=== PATIENT | female | born 1995 | race Caucasian/White ===

== ENCOUNTER 2016-12-04 11:20 | Outpatient (CLI) | payer OTHER, BC ==
[2016-12-04 12:08] LABS: APPEARANCE,URINE SLIGHTLY-CLOUDY; BILIRUBIN,URINE NEGATIVE (NEGATIVE); GLUCOSE, URINE NEGATIVE (NEGATIVE); KETONES,URINE NEGATIVE (NEGATIVE); LEUKOCYTE ESTERASE,URINE MODERATE (NEGATIVE); NITRITE,URINE NEGATIVE (NEGATIVE); PROTEIN,URINE NEGATIVE (NEGATIVE); URINE SPECIFIC GRAVITY 1.014; UROBILINOGEN,URINE NEGATIVE mg/dL (<2.0)
[2016-12-04 12:22] LABS: URINE BARBITURATES SCREEN NEGATIVE; URINE METHADONE SCREEN NEGATIVE; URINE OPIATES LOW NEGATIVE; URINE PHENCYCLIDINE SCREEN NEGATIVE
[2016-12-04 12:40] LABS: AMNISURE (ROM) NEGATIVE (NEGATIVE)
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
== END 2016-12-04 13:50 | disposition home or self-care (01) ==
LOC: LC 11:20
PROVIDERS: ATTEND Obstetrics & Gynecology
PROC: 4A1HXCZ Monitoring of Products of Conception, Cardiac Rate, External Approach (ICD-10-PCS; principal; 2016-12-04)
DX: Z36.89 Encounter for other specified antenatal screening (principal); Z3A.24 24 weeks gestation of pregnancy
CPT/HCPCS: 76815; 80307; 81001; 84112

== ENCOUNTER 2017-02-26 18:12 | Outpatient (CLI) | payer BC, OTHER ==
[2017-02-26 18:59] LABS: AMNISURE (ROM) NEGATIVE (NEGATIVE)
[2017-02-26 19:00] LABS: APPEARANCE,URINE CLOUDY; BILIRUBIN,URINE NEGATIVE (NEGATIVE); COLOR,URINE YELLOW; GLUCOSE, URINE NEGATIVE (NEGATIVE); KETONES,URINE NEGATIVE (NEGATIVE); LEUKOCYTE ESTERASE,URINE LARGE (NEGATIVE); NITRITE,URINE NEGATIVE (NEGATIVE); PROTEIN,URINE 30 mg/dL (NEGATIVE); URINE SPECIFIC GRAVITY 1.025; UROBILINOGEN,URINE NEGATIVE mg/dL (<2.0)
[2017-02-26 19:13] LABS: URINE AMPHETAMINES SCREEN NEGATIVE; URINE BARBITURATES SCREEN NEGATIVE; URINE BENZODIAZEPINES SCREEN NEGATIVE; URINE COCAINE SCREEN NEGATIVE; URINE MARIJUANA (THC) SCREEN NEGATIVE; URINE METHADONE SCREEN NEGATIVE; URINE PHENCYCLIDINE SCREEN NEGATIVE
== END 2017-02-26 19:35 | disposition home or self-care (01) ==
LOC: LC 18:12
PROVIDERS: ATTEND Obstetrics & Gynecology Gynecology
PROC: 4A1HXCZ Monitoring of Products of Conception, Cardiac Rate, External Approach (ICD-10-PCS; principal; 2017-02-26)
DX: O47.03 False labor before 37 completed weeks of gestation, third trimester (principal); Z3A.36 36 weeks gestation of pregnancy
CPT/HCPCS: 59025; 80307; 81001; 84112

== ENCOUNTER 2017-03-14 14:44 | Outpatient (CLI) | payer OTHER ==
[2017-03-14 15:43] LABS: ABSOLUTE EOSINOPHILS # (AUTO) 0.1 10^3/uL (0.0-0.6); ABSOLUTE LYMPHOCYTES (AUTO) 1.8 10^3/uL (0.5-4.7); ABSOLUTE MONOCYTES (AUTO) 0.9 10^3/uL (0.1-1.4); ABSOLUTE NEUT (AUTO) 6.4 10^3/uL (1.7-8.2); BASOPHILS % (AUTO) 0.4 % (0-2); EOSINOPHILS % (AUTO) 1.2 % (0-6); HEMATOCRIT 36.4 % (36.0-47.0); HEMOGLOBIN 12.5 g/dL (12.0-15.5); LYMPHOCYTES % (AUTO) 19.5 % (13-45); MEAN CORPUSCULAR HEMOGLOBIN 29.9 pg (27.0-33.4); MEAN CORPUSCULAR HGB CONC 34.3 g/dL (32.0-36.0); MEAN CORPUSCULAR VOLUME 87 fl (80-97); MONOCYTES % (AUTO) 10.2 % (3-13); PLATELET COUNT 205 10^3/uL (150-450); RED BLOOD COUNT 4.19 10^6/uL (3.72-5.28); RED CELL DISTRIBUTION WIDTH 14.2 % (11.5-14.0); SEGMENTED NEUTROPHILS % (AUTO) 68.7 % (42-78); TOTAL CELLS COUNTED % (AUTO) 100 %; WHITE BLOOD COUNT 9.3 10^3/uL (4.0-10.5)
[2017-03-14 16:02] LABS: ALANINE AMINOTRANSFERASE 24 U/L (9-52); ALBUMIN 3.6 g/dL (3.5-5.0); ALKALINE PHOSPHATASE 116 U/L (38-126); ANION GAP 11 (5-19); ASPARTATE AMINO TRANSFERASE 16 U/L (14-36); BLOOD UREA NITROGEN 9 mg/dL (7-20); CALCIUM 9.8 mg/dL (8.4-10.2); CARBON DIOXIDE 22 mmol/L (22-30); CHLORIDE 104 mmol/L (98-107); GLUCOSE 83 mg/dL (75-110); LDH 378 U/L (313-618); POTASSIUM 4.4 mmol/L (3.6-5.0); TOTAL PROTEIN 6.3 g/dL (6.3-8.2); URIC ACID 4.9 mg/dL (2.5-6.2)
[2017-03-14 16:05] LABS: BILIRUBIN,TOTAL < 0.1 mg/dL (0.2-1.3)
[2017-03-14 16:19] LABS: APPEARANCE,URINE CLOUDY; BILIRUBIN,URINE NEGATIVE (NEGATIVE); CALCIUM OXALATE CRYSTALS,URINE MODERATE /HPF; COLOR,URINE YELLOW; GLUCOSE, URINE NEGATIVE (NEGATIVE); KETONES,URINE NEGATIVE (NEGATIVE); LEUKOCYTE ESTERASE,URINE LARGE (NEGATIVE); NITRITE,URINE NEGATIVE (NEGATIVE); PROTEIN,URINE 30 mg/dL (NEGATIVE); URINE SPECIFIC GRAVITY 1.026; UROBILINOGEN,URINE NEGATIVE mg/dL (<2.0)
[2017-03-14 16:41] LABS: URINE AMPHETAMINES SCREEN NEGATIVE; URINE BARBITURATES SCREEN NEGATIVE; URINE BENZODIAZEPINES SCREEN NEGATIVE; URINE COCAINE SCREEN NEGATIVE; URINE MARIJUANA (THC) SCREEN NEGATIVE; URINE METHADONE SCREEN NEGATIVE; URINE PHENCYCLIDINE SCREEN NEGATIVE
[2017-03-14 16:45] LABS: UR PRO/CREAT RATIO RESULT 0.1 mg/mg (0.0-0.2); URINE CREATININE 165.9 mg/dL (16-327)
--- NOTE | 2017-03-14 17:32 | Non Stress Test Report ---
Non Stress Test Datetime Report Generated by CPN: 03/14/2017 17:32 DEMOGRAPHIC EGA NST: 38.3 EGA NST: 36.1 INDICATION Indication for Study: Ordered by Provider Indication for Study: Ordered by Provider Indication for Study (NST) Other: PRE-E W/U URINE RESULTS Urine Protein, NST: Positive Urine Ketones - NST: Negative Urine Glucose - NST: Negative Urine Blood - NST: Negative MONITORING Monitor Explained: Monitor Explained; Test Explained; Patient Verbalized Understanding Monitor Explained: Monitor Explained; Test Explained; Patient Verbalized Understanding Time on Monitor: 03/14/2017 14:57 Time on Monitor: 02/26/2017 18:34 Time off Monitor: 03/14/2017 15:59 Time off Monitor: 02/26/2017 19:28 NST Duration: 62 NST Duration: 54 NST INTERVENTIONS NST Interventions: PO Hydration; Reposition Patient NST Interventions: PO Hydration; Reposition Patient Physician Notified NST: Dr. Portillo Physician Notified NST: Sharmin Cordoba CNM BABY A: [id number] Movement : Present Movement : Present Contraction Frequency : IRREG WITH IRRITABILITY Contraction Frequency : none FHR Baseline : 135 FHR Baseline : 125 Accelerations : 15X15 Accelerations : 15X15 Decelerations : None Decelerations : None Variability : Moderate 6-25bpm Variability : Moderate 6-25bpm NST Review: Meets Criteria for Reactive NST NST Review: Meets Criteria for Reactive NST NST Review and Verified By : Stephen DIAZ NST Results: Reactive NST Results: Reactive NST REPORT Report Trigger: Send Report
[2017-03-18] MEDS ORDERED: DIPHENHYDRAMINE HCL 25 MG CAPSULE PO PRN (22:37)
== END 2017-03-14 17:11 | disposition home or self-care (01) ==
LOC: LC 14:44
PROVIDERS: ATTEND Obstetrics & Gynecology
PROC: 4A1HXCZ Monitoring of Products of Conception, Cardiac Rate, External Approach (ICD-10-PCS; principal; 2017-03-14)
DX: O16.3 Unspecified maternal hypertension, third trimester (principal); O47.1 False labor at or after 37 completed weeks of gestation; Z3A.38 38 weeks gestation of pregnancy
CPT/HCPCS: 36415; 59025; 80053; 80307; 81001; 82570; 83615; 84156; 84550; 85025

== ENCOUNTER 2017-03-15 08:24 | Outpatient (CLI) | payer OTHER ==
[2017-03-15 10:20] LABS: ABSOLUTE EOSINOPHILS # (AUTO) 0.1 10^3/uL (0.0-0.6); ABSOLUTE LYMPHOCYTES (AUTO) 1.8 10^3/uL (0.5-4.7); ABSOLUTE MONOCYTES (AUTO) 0.9 10^3/uL (0.1-1.4); ABSOLUTE NEUT (AUTO) 7.2 10^3/uL (1.7-8.2); BASOPHILS % (AUTO) 0.2 % (0-2); EOSINOPHILS % (AUTO) 1.2 % (0-6); HEMATOCRIT 35.2 % (36.0-47.0); HEMOGLOBIN 11.8 g/dL (12.0-15.5); LYMPHOCYTES % (AUTO) 18.3 % (13-45); MEAN CORPUSCULAR HEMOGLOBIN 29.2 pg (27.0-33.4); MEAN CORPUSCULAR HGB CONC 33.5 g/dL (32.0-36.0); MEAN CORPUSCULAR VOLUME 87 fl (80-97); PLATELET COUNT 198 10^3/uL (150-450); RED BLOOD COUNT 4.04 10^6/uL (3.72-5.28); RED CELL DISTRIBUTION WIDTH 14.1 % (11.5-14.0); SEGMENTED NEUTROPHILS % (AUTO) 71.3 % (42-78); TOTAL CELLS COUNTED % (AUTO) 100 %; WHITE BLOOD COUNT 10.1 10^3/uL (4.0-10.5)
[2017-03-15 10:32] LABS: ALANINE AMINOTRANSFERASE 27 U/L (9-52); ALBUMIN 3.2 g/dL (3.5-5.0); ALKALINE PHOSPHATASE 99 U/L (38-126); ANION GAP 9 (5-19); ASPARTATE AMINO TRANSFERASE 15 U/L (14-36); BLOOD UREA NITROGEN 10 mg/dL (7-20); CALCIUM 9.4 mg/dL (8.4-10.2); CARBON DIOXIDE 23 mmol/L (22-30); CHLORIDE 105 mmol/L (98-107); GLUCOSE 107 mg/dL (75-110); LDH 318 U/L (313-618); POTASSIUM 3.8 mmol/L (3.6-5.0); SODIUM 137.4 mmol/L (137-145); TOTAL PROTEIN 5.6 g/dL (6.3-8.2); URIC ACID 5.5 mg/dL (2.5-6.2)
[2017-03-15 10:33] LABS: BILIRUBIN,TOTAL < 0.1 mg/dL (0.2-1.3)
--- NOTE | 2017-03-15 11:11 | Non Stress Test Report ---
Non Stress Test Datetime Report Generated by CPN: 03/15/2017 11:11 DEMOGRAPHIC EGA NST: 38.4 INDICATION Indication for Study: Other MONITORING Monitor Explained: Monitor Explained; Test Explained; Patient Verbalized Understanding Monitor Explained Other: Labor check Time on Monitor: 03/15/2017 08:39 Time off Monitor: 03/15/2017 10:49 NST Duration: 130 NST INTERVENTIONS NST Interventions: PO Hydration Physician Notified NST: Dr. Silva-Mainor BABY A: [id number] BABY A Movement : Present Contraction Frequency : irregular FHR Baseline : 140 Accelerations : 15X15 Decelerations : None Variability : Moderate 6-25bpm NST Review: Meets Criteria for Reactive NST NST Review and Verified By : Mahesh Ventura RN NST Results: Reactive NST REPORT Report Trigger: Send Report
== END 2017-03-15 11:10 | disposition home or self-care (01) ==
LOC: LC 08:24
PROVIDERS: ATTEND Obstetrics & Gynecology
PROC: 4A1HXCZ Monitoring of Products of Conception, Cardiac Rate, External Approach (ICD-10-PCS; principal; 2017-03-15)
DX: O16.3 Unspecified maternal hypertension, third trimester (principal); O47.1 False labor at or after 37 completed weeks of gestation; Z3A.38 38 weeks gestation of pregnancy
CPT/HCPCS: 36415; 59025; 80053; 83615; 84550; 85025

== ENCOUNTER 2017-03-16 08:02 | Inpatient (IN) | payer OTHER ==
[2017-03-16] MEDS ORDERED: RINGERS SOLUTION,LACTATED 300 ML IV ONE (10:20)
[2017-03-16] MEDS ORDERED: MISOPROSTOL 0.1 MG TABLET ONE ×2 (10:40→15:33)
--- NOTE | 2017-03-16 11:46 | Non Stress Test Report ---
Non Stress Test Datetime Report Generated by CPN: 03/16/2017 11:46 DEMOGRAPHIC EGA NST: 38.5 INDICATION Indication for Study: Ordered by Provider MONITORING Monitor Explained: Monitor Explained; Test Explained; Patient Verbalized Understanding Time on Monitor: 03/16/2017 08:15 NST INTERVENTIONS NST Interventions: PO Hydration; Reposition Patient Physician Notified NST: Dr. Bandar BABY A: [id number] BABY A Movement : Present Contraction Frequency : Irregular FHR Baseline : 135 Accelerations : 15X15 Decelerations : None Variability : Moderate 6-25bpm NST Review: Meets Criteria for Reactive NST NST Review and Verified By : Mahesh Ventura RN NST Results: Reactive NST REPORT Report Trigger: Send Report
[2017-03-16] MEDS ORDERED: MISOPROSTOL 0.1 MG TABLET PO ONE ×2 (12:00→16:00)
[2017-03-16] MEDS: RINGERS SOLUTION,LACTATED 1,000 ML IV PRN ×2 (12:23→21:11)
[2017-03-16] MEDS ORDERED: PENICILLIN G POTASSIUM 5,000,000 UNIT in DEXTROSE 5%-WATER 100 ML IV ONE (12:44)
[2017-03-16] MEDS ORDERED: PENICILLIN G-K 5 MILLION UNIT VIAL ONE ×4 (12:47→21:03)
[2017-03-16] MEDS ORDERED: MISOPROSTOL 0.2 MG TABLET PV ONE (16:00)
[2017-03-16] MEDS: PENICILLIN G POTASSIUM 2,500,000 UNIT in DEXTROSE 5%-WATER 50 ML IV SCH ×2 (17:19→21:11)
[2017-03-16] MEDS ORDERED: ZOLPIDEM TARTRATE 5 MG TABLET PO PRN (20:16)
[2017-03-16] MEDS ORDERED: DINOPROSTONE 10 MG VAGINAL INSERT.SR PV ONE (20:16)
[2017-03-16] MEDS ORDERED: MAG HYDROX/AL HYDROX/SIMETH SUSP 30 ML UDCUP PO PRN (20:16)
[2017-03-16] MEDS ORDERED: ACETAMINOPHEN 325 MG TABLET PO PRN (20:16)
[2017-03-16] MEDS ORDERED: DINOPROSTONE 10 MG VAGINAL INSERT.SR ONE (20:16)
[2017-03-16] MEDS ORDERED: ZOLPIDEM TARTRATE 5 MG TABLET ONE (23:53)
[2017-03-17] MEDS ORDERED: ZOLPIDEM TARTRATE 5 MG TABLET ONE (02:00)
[2017-03-17] MEDS ORDERED: NALBUPHINE HCL INJ 10 MG/1 ML AMPULE ONE (05:03)
[2017-03-17] MEDS ORDERED: PROMETHAZINE HCL INJ 25 MG/1 ML VIAL ONE (05:03)
[2017-03-17] MEDS ORDERED: NALBUPHINE HCL INJ 10 MG/1 ML AMPULE INJ ONE (05:23)
[2017-03-17] MEDS ORDERED: PROMETHAZINE HCL INJ 25 MG/1 ML VIAL IV ONE (05:23)
[2017-03-17] MEDS ORDERED: OXYTOCIN/NORMAL SALINE 20 UNIT/1,000 ML RTUINJ IV PRN ×2 (08:38→16:42)
[2017-03-17] MEDS ORDERED: MISOPROSTOL 0.2 MG TABLET ONE (08:46)
[2017-03-17] MEDS ORDERED: OXYTOCIN/NORMAL SALINE 20 UNIT/1,000 ML RTUINJ ONE (08:46)
[2017-03-17] MEDS ORDERED: LIDOCAINE 1% INJ-PF (10 MG/ML) 30 ML SDV ONE (08:46)
[2017-03-17] MEDS ORDERED: PENICILLIN G-K 5 MILLION UNIT VIAL ONE ×2 (08:46→15:01)
[2017-03-17] MEDS ORDERED: EPHEDRINE SULFATE INJ 50 MG/1 ML AMPULE ONE (13:17)
[2017-03-17] MEDS ORDERED: FENTANYL/BUPIVACAINE/NS/PF 200 MCG/100 ML RTUINJ EPI ONE (13:18)
[2017-03-17] MEDS ORDERED: BUPIVACAINE HCL 0.25 % INJ/PF (2.5 MG/1 ML) 30 ML VIAL ONE (13:18)
[2017-03-17] MEDS: RINGERS SOLUTION,LACTATED 1,000 ML IV PRN (13:33)
--- NOTE | 2017-03-17 14:43 | L&D Progress Notes ---
PROGRESS NOTES Datetime Report Generated by CPN: 03/17/2017 14:42 PROGRESS NOTE Impression: Normal Progression of Labor Procedures: Sterile Vag Exam Plan: Continue Present Management Vital Signs : Reviewed Comment: Feeling rectal pressure, more comfortable with epidural. SVE as above. Continue present management Anticipate . VAGINAL EXAM Dilatation: 7 Dilatation: 2 Effacement: 100 Effacement: 50 Station: 0 Station: -3 Contractions: 2-3 MEMBRANES Pooling: Negative Membranes: Ruptured Membranes: Intact FETUS A FHR - Baseline: 140 Monitoring: External US Variability: Moderate 6-25bpm Accelerations: 15X15 Decelerations: None FHR Category: Category I : 38.6 Estimated Weight (gm): 3500 Presentation: Vertex SIGNATURE SIGNATURE: ,[id number];,[id number] SIGNATURE: ,[id number] SIGNATURE: ,[id number] SIGNATURE: ,[id number] Assignment: Rasheeda Braxton MD Signature: with User ID: [email or web address] : with User ID: [email or web address]
[2017-03-17] MEDS ORDERED: MEASLES,MUMPS&RUBELLA VACC/PF 0.5 ML VIAL SUBCUT PRN (16:42)
[2017-03-17] MEDS ORDERED: ACETAMINOPHEN WITH CODEINE #3 TABLET PO PRN ×2 (16:42)
[2017-03-17] MEDS ORDERED: DIBUCAINE 1% OINTMENT 28 GM TP PRN (16:42)
[2017-03-17] MEDS ORDERED: BENZOCAINE/MENTHOL AEROSOL SPRAY 56 ML TOP PRN (16:42)
[2017-03-17] MEDS ORDERED: ZOLPIDEM TARTRATE 5 MG TABLET PO PRN (16:42)
[2017-03-17] MEDS ORDERED: DIPH/PERTUSS(ACELL)/TETANUS VAC/PF 0.5 ML SYR (>=10YO) IM PRN (16:42)
--- NOTE | 2017-03-17 18:59 | Admission Physical ---
Datetime Report Generated by CPN: 03/17/2017 18:58 CURRENT ADMISSION Chief Complaint: Other Indication for Induction: PreEclampsia Indication for Induction: Term, Intrauterine ; Induction of Labor Admit Plan: Admit to Unit; Initiate Labor Induction Protocol ALLERGIES Medication Allergies: No Medication Allergies: No Known Allergies (03/15/2017) Medication Allergies: No Known Allergies (03/14/2017) Medication Allergies: No Known Allergies (12/04/2016) Latex: No Latex Allergies Food Allergies: N/A Environmental Allergies: Pollen OBSTETRICAL HISTORY EDC: 03/25/2017 00:00 : 1 Para: 0 Term: 0 : 0 SAB: 0 IAB: 0 Ectopic: 0 Livin Cesareans: 0 VBACs: 0 Multiple Births: 0 Gestational Diabetes: Yes Rh Sensitization: No Incompetent Cervix: No MARTY: No Infertility: No ART Treatment: No Uterine Anomaly: No IUGR: No Hx Previous C/S: No Macrosomia: No Hx Loss/Stillborn: No PIH: No Hx : No Placenta Previa/Abruption: No Depression/PP Depression: No PTL/PROM: No Post Hemorrhage: No Current Procedures: Ultrasound Obstetrical History Comments: G1 - Current , GDM, cervical shortening SEE RECORDS Alcohol: No Marijuana : No Cocaine: No Other Illicit Drugs: No Cigarettes: Former Smoker. [id number] Cigarette Comments: 5 or 6 years ago MEDICAL HISTORY Diabetes: No Blood Transfusion: No Pulmonary Disease (Asthma, TB): Yes Breast Disease: No Hypertension: No Domestic Helper Surgery: No Heart Disease: No Hosp/Surgery: Yes Autoimmune Disorder: No Anesthetic Complications: No Kidney Disease: Yes Abnormal Pap Smear: No Neuro/Epilepsy: No Psychiatric Disorders: Yes Other Medical Diseases: No Hepatitis/Liver Disease: No Significant Family History: No Varicosities/Phlebitis: No Trauma/Violence : No Thyroid Dysfunction: No Medical History Comments: Asthma, Anxiety, UTI's; surgery on R arm as a child INFECTIOUS HISTORY Gonorrhea: No Genital Herpes: No Chlamydia: No Tuberculosis: No Syphilis: No Hepatitis: No HIV/AIDS Exposure: No Rash or Viral Illness: No HPV: No PHYSICAL EXAM General: Normal HEENT: Normal Neurologic: Normal Thyroid: Normal Heart: Normal Lungs: Normal Breast: Normal Back: Normal Abdomen: Normal Genitourinary Exam: Normal Extremities: Normal DTRs: Normal Pelvic Type: Adequate Vital Signs: Reviewed VAGINAL EXAM Dilatation: 7 Dilatation: 2 Effacement: 100 Effacement: 50 Station: 0 Station: -3 Contraction Comments: 2-3 MEMBRANES Pooling: Negative Membranes: Ruptured Membranes: Intact FETUS A EGA: 38.5 Monitoring: External US FHR- Baseline: 130 Variability: Moderate 6-25bpm Accelerations: 15X15 Decelerations: None FHR Category: Category I Estimated Weight (gm): 3500 Presentation: Vertex Admit Comment: 24 hour urine protein returned over 300 mg. Will proceed with induction for PreE w/o severe features. counseled on increased risks including risks of ceserean delivery. voices understanding. PLANS FOR LABOR AND DELIVERY Labor and Delivery: None Pain Management: Epidural Feeding Preference: Breast Benefit of Breast Feed Discussed: Yes Circumcision: N/A INFORMED CONSENT Signature: with User ID: [email or web address]
[2017-03-17] MEDS: DOCUSATE SODIUM 100 MG CAPSULE PO SCH (20:39)
[2017-03-17] MEDS: FERROUS SULFATE 325 MG TABLET PO SCH (20:39)
[2017-03-17] MEDS: IBUPROFEN 800 MG TABLET PO SCH (21:59)
[2017-03-18] MEDS: IBUPROFEN 800 MG TABLET PO SCH ×3 (05:22→21:06)
[2017-03-18 07:37] LABS: MEAN CORPUSCULAR HEMOGLOBIN 29.9 pg (27.0-33.4); MEAN CORPUSCULAR HGB CONC 34.2 g/dL (32.0-36.0); MEAN CORPUSCULAR VOLUME 87 fl (80-97); PLATELET COUNT 137 10^3/uL (150-450); RED BLOOD COUNT 3.44 10^6/uL (3.72-5.28); RED CELL DISTRIBUTION WIDTH 14.8 % (11.5-14.0); WHITE BLOOD COUNT 10.1 10^3/uL (4.0-10.5)
[2017-03-18 07:39] LABS: HEMOGLOBIN 10.3 g/dL (12.0-15.5)
--- NOTE | 2017-03-18 09:14 | PDOC PROGRESS REPORT ---
Subjective-OB Progress Note for:: 03/18/17 Subjective: pt without complaints Physical Exam (OB) Vital Signs: Temp Pulse Resp BP Pulse Ox 97.6 F 92 18 130/79 H 99 03/18/17 04:36 03/18/17 04:36 03/18/17 04:36 03/18/17 04:36 03/18/17 04:36 Intake & Output 03/17/17 03/18/17 03/19/17 06:59 06:59 06:59 Intake Total 600 Balance 600 Weight 99.2 kg - General General Appearance: Appears well - PIH/Pre-Eclampsia DTR's: 2 + Clonus: Negative Headache: Absent Epigastric Pain: No Visual Changes: No - Lochia Lochia Amount: Moderate 25-50 ml Lochia Color: Rubra/Red - Abdomen Description: Tender, Soft Hernia Present: No Bowel Sounds: Normoactive Flatus Presence: Present Stool: No Fundal Description: Firm, Midline Fundal Height: u/u - u/2 - Respiratory Breath sounds: Clear - Extremities Calf: Normal - continue routine care Objective-Diagnostic Laboratory: 03/18/17 07:24 03/18/17 07:24 WBC 10.1 RBC 3.44 L Hgb 10.3 L D Hct 30.0 L MCV 87 MCH 29.9 MCHC 34.2 RDW 14.8 H Plt Count 137 L
[2017-03-18] MEDS: FERROUS SULFATE 325 MG TABLET PO SCH ×2 (10:24→17:18)
[2017-03-18] MEDS: DOCUSATE SODIUM 100 MG CAPSULE PO SCH ×2 (10:24→17:17)
[2017-03-18] MEDS: PRENATAL VITAMIN W DHA CAPSULE PO SCH (10:24)
[2017-03-18] MEDS: SENNOSIDES/DOCUSATE 8.6-50 MG 1 EACH TABLET PO SCH (10:27)
[2017-03-18] MEDS ORDERED: DIPHENHYDRAMINE HCL 25 MG CAPSULE ONE (22:58)
[2017-03-19] MEDS ORDERED: DIPHENHYDRAMINE HCL 25 MG CAPSULE PO PRN (00:49)
[2017-03-19] MEDS: IBUPROFEN 800 MG TABLET PO SCH (05:54)
[2017-03-19] MEDS: DOCUSATE SODIUM 100 MG CAPSULE PO SCH (09:55)
[2017-03-19] MEDS: FERROUS SULFATE 325 MG TABLET PO SCH (09:55)
[2017-03-19] MEDS: PRENATAL VITAMIN W DHA CAPSULE PO SCH (09:55)
[2017-03-19] MEDS: SENNOSIDES/DOCUSATE 8.6-50 MG 1 EACH TABLET PO SCH (09:55)
[2017-03-19 11:30] VITALS: BP 120/80
--- NOTE | 2017-03-19 12:06 | PDOC DISCHARGE SUMMARY ---
Final Diagnosis Discharge Date: 03/19/17 Discharge Data - Discharge Medication Prescriptions: Ibuprofen [Motrin 800 mg Tablet] 800 mg PO Q8 #90 tablet Home Medications: Budesonide/Formoterol Fumarate [Symbicort HFA 160-4.5 mcg Inhaler 6 gm] 2 puff PO ASDIR PRN 12/04/16 No122/Iron/Folic Acid [ Multi Tablet] 1 tab PO DAILY 12/04/16 Acetaminophen [Tylenol Extra Strength 500 mg Tablet] 1 tab PO PRN PRN 03/16/17 Ibuprofen [Motrin 800 mg Tablet] 800 mg PO Q8 #90 tablet 03/19/17 Procedures: NST Intrapartum Procedure(s): Spontaneous Vaginal Delivery - Diagnosis Test Laboratory: Temp Pulse Resp BP Pulse Ox 97.8 F 99 18 120/80 100 03/19/17 11:31 03/19/17 11:31 03/19/17 11:31 03/19/17 11:31 03/19/17 11:31 03/18/17 07:24 RBC 3.44 L Hgb 10.3 L D Hct 30.0 L - Discharge information/Instructions Discharge Activity: Balance Activity w/Rest, Pelvic Rest, Slowly Increase Activity Discharge Diet: Regular Disposition: HOME, SELF-CARE Follow up with: [facility] in: 4, Weeks
== END 2017-03-19 12:40 | disposition home or self-care (01) | DRG 774 ==
LOC: LC 08:02 → LR 10:20 → 2S 03-17 18:50
PROVIDERS: ADMIT Obstetrics & Gynecology; ATTEND Obstetrics & Gynecology
PROC: 4A1HXCZ Monitoring of Products of Conception, Cardiac Rate, External Approach (ICD-10-PCS; principal; 2017-03-16)
DX: O14.93 Unspecified pre-eclampsia, third trimester (principal); O99.52 Diseases of the respiratory system complicating childbirth; O26.873 Cervical shortening, third trimester; O99.513 Diseases of the respiratory system complicating pregnancy, third trimester; O24.419 Gestational diabetes mellitus in pregnancy, unspecified control; J45.909 Unspecified asthma, uncomplicated; F41.9 Anxiety disorder, unspecified; Z87.891 Personal history of nicotine dependence
CPT/HCPCS: 36415; 85027; 86592; 86850; 86900; 86901; 94760; J2300; J2540; J2550; J2590; J3490

== ENCOUNTER → 2017-03-16 | Outpatient (CLI) | payer OTHER ==
[2017-03-16 08:08] LABS: HEMATOCRIT 37.1 % (36.0-47.0); HEMOGLOBIN 12.5 g/dL (12.0-15.5); MEAN CORPUSCULAR HEMOGLOBIN 29.5 pg (27.0-33.4); MEAN CORPUSCULAR HGB CONC 33.8 g/dL (32.0-36.0); MEAN CORPUSCULAR VOLUME 87 fl (80-97); PLATELET COUNT 191 10^3/uL (150-450); RED BLOOD COUNT 4.25 10^6/uL (3.72-5.28); RED CELL DISTRIBUTION WIDTH 14.4 % (11.5-14.0); WHITE BLOOD COUNT 8.7 10^3/uL (4.0-10.5)
[2017-03-16 08:30] LABS: ALANINE AMINOTRANSFERASE 19 U/L (9-52); ALBUMIN 3.3 g/dL (3.5-5.0); ALKALINE PHOSPHATASE 103 U/L (38-126); ANION GAP 9 (5-19); ASPARTATE AMINO TRANSFERASE 16 U/L (14-36); BILIRUBIN,DIRECT 0.2 mg/dL (0.0-0.4); BILIRUBIN,TOTAL 0.2 mg/dL (0.2-1.3); BLOOD UREA NITROGEN 11 mg/dL (7-20); CARBON DIOXIDE 23 mmol/L (22-30); CHLORIDE 105 mmol/L (98-107); GLUCOSE 116 mg/dL (75-110); LDH 348 U/L (313-618); POTASSIUM 4.1 mmol/L (3.6-5.0); TOTAL PROTEIN 5.8 g/dL (6.3-8.2); URIC ACID 5.6 mg/dL (2.5-6.2)
[2017-03-16 08:53] LABS: 24 HOUR URINE PROTEIN RESULT 354 mg/day (42-225); URINE PROTEIN 24.1 mg/dL (<12)
== END ==
LOC: LAB 07:49
PROVIDERS: ATTEND Obstetrics & Gynecology
DX: O16.9 Unspecified maternal hypertension, unspecified trimester (principal)
CPT/HCPCS: 36415; 80053; 83615; 84156; 84550; 85027

== ENCOUNTER 2017-03-20 21:25 | Inpatient (IN) | payer OTHER ==
--- NOTE | 2017-03-21 00:02 | ER Document Report ---
ED Medical Screen (RME) - General Chief Complaint: Chest Tightness Stated Complaint: CHEST TIGHTNESS,SHORT OF BREATH Time Seen by Provider: 03/20/17 23:59 Mode of Arrival: Ambulatory Information source: Patient Notes: 31-year-old female presents to ED for complaint of chest tightness and shortness of breath the last couple days. She delivered a baby 3 days ago. She was induced due to preeclampsia at 38 weeks 5 days. She states she has not been able to lay flat to sleep and is had shortness of breath since then. Respirations are regular and unlabored no pain at this moment. TRAVEL OUTSIDE OF THE [place] IN LAST 30 DAYS: No - Related Data Allergies/Adverse Reactions: No Known Allergies Allergy (Verified 03/20/17 22:01) Past Medical History - Social History Chew tobacco use (# tins/day): No Frequency of alcohol use: None Drug Abuse: None Renal/ Medical History: Denies: Hx Peritoneal Dialysis - Immunizations History of Influenza Vaccine for 11/2016 - 04/2017 Season: Refused
[2017-03-21 00:31] LABS: ABSOLUTE EOSINOPHILS # (AUTO) 0.4 10^3/uL (0.0-0.6); ABSOLUTE LYMPHOCYTES (AUTO) 2.2 10^3/uL (0.5-4.7); ABSOLUTE MONOCYTES (AUTO) 0.8 10^3/uL (0.1-1.4); ABSOLUTE NEUT (AUTO) 7.2 10^3/uL (1.7-8.2); BASOPHILS % (AUTO) 0.3 % (0-2); EOSINOPHILS % (AUTO) 3.7 % (0-6); HEMATOCRIT 35.1 % (36.0-47.0); HEMOGLOBIN 11.7 g/dL (12.0-15.5); LYMPHOCYTES % (AUTO) 20.7 % (13-45); MEAN CORPUSCULAR HEMOGLOBIN 29.2 pg (27.0-33.4); MEAN CORPUSCULAR HGB CONC 33.3 g/dL (32.0-36.0); MEAN CORPUSCULAR VOLUME 88 fl (80-97); MONOCYTES % (AUTO) 7.6 % (3-13); PLATELET COUNT 265 10^3/uL (150-450); RED CELL DISTRIBUTION WIDTH 14.5 % (11.5-14.0); SEGMENTED NEUTROPHILS % (AUTO) 67.7 % (42-78); TOTAL CELLS COUNTED % (AUTO) 100 %; WHITE BLOOD COUNT 10.7 10^3/uL (4.0-10.5)
--- NOTE | 2017-03-21 00:37 | RADIOLOGY REPORT (SQ) ---
EXAM DESCRIPTION: CHEST PA/LAT CLINICAL HISTORY: chest tightness COMPARISON: None. FINDINGS: Frontal and lateral views of the chest. The cardiomediastinal silhouette has normal size and contour. No consolidation, pneumothorax, or pleural effusion. No displaced rib fractures identified. Upper abdominal soft tissues are unremarkable. IMPRESSION: 1. No acute pulmonary process identified.
[2017-03-21 00:43] LABS: APPEARANCE,URINE CLOUDY; BILIRUBIN,URINE NEGATIVE (NEGATIVE); COLOR,URINE YELLOW; GLUCOSE, URINE NEGATIVE (NEGATIVE); KETONES,URINE NEGATIVE (NEGATIVE); LEUKOCYTE ESTERASE,URINE LARGE (NEGATIVE); NITRITE,URINE NEGATIVE (NEGATIVE); PROTEIN,URINE 30 mg/dL (NEGATIVE); UROBILINOGEN,URINE NEGATIVE mg/dL (<2.0)
[2017-03-21 00:53] LABS: ALANINE AMINOTRANSFERASE 27 U/L (9-52); ALBUMIN 3.6 g/dL (3.5-5.0); ALKALINE PHOSPHATASE 76 U/L (38-126); ANION GAP 9 (5-19); ASPARTATE AMINO TRANSFERASE 25 U/L (14-36); BILIRUBIN,DIRECT 0.4 mg/dL (0.0-0.4); BILIRUBIN,TOTAL 0.4 mg/dL (0.2-1.3); BLOOD UREA NITROGEN 12 mg/dL (7-20); CALCIUM 9.5 mg/dL (8.4-10.2); CARBON DIOXIDE 26 mmol/L (22-30); CHLORIDE 105 mmol/L (98-107); CREATINE KINASE 55 U/L (30-135); GLUCOSE 82 mg/dL (75-110); SODIUM 139.5 mmol/L (137-145); TOTAL PROTEIN 6.4 g/dL (6.3-8.2)
[2017-03-21] MEDS ORDERED: LABETALOL HCL INJ 20 MG/4 ML DISP.SYRIN IV ONE ×2 (01:53→02:07)
[2017-03-21] MEDS ORDERED: MAGNESIUM SULFATE 4 GM/100 ML RTUPB IV ONE ×3 (01:53→03:44)
--- NOTE | 2017-03-21 02:18 | ER Document Report ---
ED General - General Chief Complaint: Chest Tightness Stated Complaint: CHEST TIGHTNESS,SHORT OF BREATH Time Seen by Provider: 03/20/17 23:59 Mode of Arrival: Ambulatory Notes: Patient is a 21-year-old female who presents 3 days after being induced for preeclampsia with concerns of hypertension and blurred vision. Patient states that she was induced for hypertension in the setting of blurred vision and headache. She states after delivery her headache and blurred vision did resolve. At time of discharge she was no longer hypertensive so she was not sent home on antihypertensive medications. She states that again today she noticed that she had a recurrence of her symptoms. She describes it as a constant blurring of her vision but denies any associated headache. Nothing seems to improve or worsen her symptoms. TRAVEL OUTSIDE OF THE [place] IN LAST 30 DAYS: No - Related Data Allergies/Adverse Reactions: No Known Allergies Allergy (Verified 03/20/17 22:01) Past Medical History - General Information source: Patient - Social History Smoking Status: Never Smoker Chew tobacco use (# tins/day): No Frequency of alcohol use: None Drug Abuse: None Lives with: Spouse/Significant other Family History: Reviewed & Not Pertinent Patient has suicidal ideation: No Patient has homicidal ideation: No Renal/ Medical History: Denies: Hx Peritoneal Dialysis Past Surgical History: Reports: Hx Orthopedic Surgery Review of Systems - Review of Systems Notes: Constitutional: Negative for fever. HENT: Negative for sore throat. Eyes: Positive for visual changes. Cardiovascular: Negative for chest pain. Respiratory: Negative for shortness of breath. Gastrointestinal: Negative for abdominal pain, vomiting or diarrhea. Genitourinary: Negative for dysuria. Musculoskeletal: Negative for back pain. Skin: Negative for rash. Neurological: Negative for headaches, weakness or numbness. 10 point ROS negative except as marked above and in HPI. Physical Exam - Vital signs Vitals: Temp Pulse Resp BP Pulse Ox 98.8 F 88 16 147/94 H 99 03/20/17 22:00 03/20/17 22:00 03/20/17 22:00 03/20/17 22:00 03/20/17 22:00 Interpretation: Hypertensive Notes: PHYSICAL EXAMINATION: GENERAL: Well-appearing, well-nourished and in no acute distress. HEAD: Atraumatic, normocephalic. EYES: Pupils equal round and reactive to light, extraocular movements intact, sclera anicteric, conjunctiva are normal. ENT: nares patent, oropharynx clear without exudates. Moist mucous membranes. NECK: Normal range of motion, supple without lymphadenopathy LUNGS: Breath sounds clear to auscultation bilaterally and equal. No wheezes rales or rhonchi. HEART: Regular rate and rhythm without murmurs ABDOMEN: Soft, nontender, normoactive bowel sounds. No guarding, no rebound. No masses appreciated. EXTREMITIES: Normal range of motion, no pitting or edema. No cyanosis. NEUROLOGICAL: Face symmetric. Tongue protrudes midline. Extraocular motions intact. Pupils are 2 mm and equally reactive. Normal speech, normal gait. 5 out of 5 strength in both the distal and proximal upper and lower extremities bilaterally. Sensation is grossly intact throughout. Finger to nose testing normal. Pronator drift normal. PSYCH: Normal mood, normal affect. SKIN: Warm, Dry, normal turgor, no rashes or lesions noted. Course - Re-evaluation Re-evalutation: 03/21/17 02:15 Patient presents with blurring of vision and headache in the setting of being 3 days with associated hypertension. Patient was induced for preeclampsia. Multiple BPs here are above acceptable limits especially given symptoms. Labs overall unremarkable, LDH, and uric acid pending. I have discussed with who has requested the patient be admitted for magnesium infusion. IV labetalol has been administered. - Vital Signs Vital signs: Temp Pulse Resp BP Pulse Ox 98.6 F 87 18 139/86 H 100 03/21/17 02:57 03/21/17 02:57 03/21/17 02:57 03/21/17 02:57 03/21/17 02:57 - Laboratory Result Diagrams: 03/21/17 00:08 03/21/17 00:08 Laboratory results interpreted by me: 03/21/17 03/21/17 03/21/17 00:08 00:08 00:08 WBC 10.7 H Hgb 11.7 L Hct 35.1 L RDW 14.5 H Urine Protein 30 H Urine Blood LARGE H Ur Leukocyte Esterase LARGE H Protein/Creatinin Ratio 0.3 H Urine Total Protein 40.1 H Discharge - Discharge Clinical Impression: Preeclampsia in period, Blurring of vision Condition: Fair Disposition: ADMITTED OBSERVATION Admitting Provider: [facility] Unit Admitted: Labor and Delivery
[2017-03-21 02:24] VITALS: BP 139/86
[2017-03-21 02:34] LABS: LDH 540 U/L (313-618); URIC ACID 5.4 mg/dL (2.5-6.2)
[2017-03-21 02:45] LABS: UR PRO/CREAT RATIO RESULT 0.3 mg/mg (0.0-0.2); URINE CREATININE 150.5 mg/dL (16-327); URINE PROTEIN 40.1 mg/dL (<12)
[2017-03-21] MEDS ORDERED: RINGERS SOLUTION,LACTATED 1,000 ML IV PRN (03:59)
[2017-03-21] MEDS ORDERED: MAGNESIUM SULFATE 20 GM/500 ML RTUINJ IV PRN (04:00)
--- NOTE | 2017-03-21 10:02 | EKG REPORT ---
SEVERITY:- NORMAL ECG - SINUS RHYTHM : Confirmed by: Graeme Palomo 21-Mar-2017 10:01:30
--- NOTE | 2017-03-21 10:27 | PDOC DISCHARGE SUMMARY ---
General - Admit/Disc Date/PCP Admission Date/Primary Care Provider: 03/21/17 02:29 Discharge Date: 03/21/17 - Discharge Diagnosis (1) Blurring of vision Is this a current diagnosis for this admission?: Yes Summary: The patient presented with blurred vision and some difficulty breathing to the ER. She was diagnosed with preeclampsia and admitted for evaluation to labor and delivery. - Additional Information Resuscitation Status: Full Code Home Medications: Budesonide/Formoterol Fumarate [Symbicort HFA 160-4.5 mcg Inhaler 6 gm] 2 puff PO ASDIR PRN 12/04/16 No122/Iron/Folic Acid [ Multi Tablet] 1 tab PO DAILY 12/04/16 Acetaminophen [Tylenol Extra Strength 500 mg Tablet] 1 tab PO PRN PRN 03/16/17 Ibuprofen [Motrin 800 mg Tablet] 800 mg PO Q8 #90 tablet 03/19/17 History of Present Illness Patient complains of: Shortness of breath and blurred vision History of Present Illness: SUSSY MARTINEZ is a 21 year old female She was evaluated in the ER and admitted to labor and delivery. Hospital Course Hospital Course: After a course of Magnesium she is doing well and feeling much better. The Magnesium has been stopped and her blood pressures are normal. She is ready to go home. Physical Exam - Physical Exam Vital Signs: Temp Pulse Resp BP Pulse Ox 98.6 F 87 18 139/86 H 100 03/21/17 02:57 03/21/17 02:57 03/21/17 02:57 03/21/17 02:57 03/21/17 02:57 General appearance: PRESENT: no acute distress, well-developed, well-nourished Head exam: PRESENT: atraumatic, normocephalic Result Impressions: Chest X-Ray 03/21/17 00:00 IMPRESSION: 1. No acute pulmonary process identified. Normal blood pressure this morning. Plan Discharge Plan: Home to recover without BP meds. Followup next week in the office. Time Spent: Less than 30 Minutes
--- NOTE | 2017-03-21 12:09 | Admission Physical ---
Datetime Report Generated by CPN: 03/21/2017 12:09 CURRENT ADMISSION Chief Complaint: Other Chief Complaint: Other Chief Complaint: Other Indication for Induction: Not Applicable Indication for Induction: PreEclampsia Indication for Induction: Medical Complication Indication for Induction: Term, Intrauterine ; Induction of Labor Admit Plan: Admit to Unit Admit Plan: Admit to Unit; Initiate Labor Induction Protocol Admit Plan- Other: Post PreE. PPD #4 Admit Plan- Other: initiate PreE protocol with magnesium sulfate. ALLERGIES Medication Allergies: No Medication Allergies: No Known Allergies (03/20/2017) Medication Allergies: No Known Allergies (03/15/2017) Medication Allergies: No Known Allergies (03/14/2017) Medication Allergies: No Known Allergies (12/04/2016) Latex: No Latex Allergies Food Allergies: N/A Environmental Allergies: Pollen OBSTETRICAL HISTORY EDC: 03/25/2017 00:00 : 1 Para: 0 Term: 0 : 0 SAB: 0 IAB: 0 Ectopic: 0 Livin Cesareans: 0 VBACs: 0 Multiple Births: 0 Gestational Diabetes: Yes Rh Sensitization: No Incompetent Cervix: No MARTY: No Infertility: No ART Treatment: No Uterine Anomaly: No IUGR: No Hx Previous C/S: No Macrosomia: No Hx Loss/Stillborn: No PIH: No Hx : No Placenta Previa/Abruption: No Depression/PP Depression: No PTL/PROM: No Post Hemorrhage: No Current Procedures: Ultrasound Obstetrical History Comments: G1 - Current , GDM, cervical shortening SEE RECORDS Alcohol: No Marijuana : No Cocaine: No Other Illicit Drugs: No Cigarettes: Former Smoker. 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 Heart Disease: No Hosp/Surgery: Yes Autoimmune Disorder: No Anesthetic Complications: No Kidney Disease: Yes Abnormal Pap Smear: No Neuro/Epilepsy: No Psychiatric Disorders: Yes Other Medical Diseases: No Hepatitis/Liver Disease: No Significant Family History: No Varicosities/Phlebitis: No Trauma/Violence : No Thyroid Dysfunction: No Medical History Comments: Asthma, Anxiety, UTI's; surgery on R arm as a child INFECTIOUS HISTORY Gonorrhea: No Genital Herpes: No Chlamydia: No Tuberculosis: No Syphilis: No Hepatitis: No HIV/AIDS Exposure: No Rash or Viral Illness: No HPV: No PHYSICAL EXAM General: Normal General: Normal General: Normal HEENT: Normal HEENT: Normal HEENT: Normal Neurologic: Normal Neurologic: Normal Neurologic: Normal Thyroid: Normal Thyroid: Normal Thyroid: Normal Heart: Normal Heart: Normal Heart: Normal Lungs: Normal Lungs: Normal Lungs: Normal Breast: Normal Breast: Normal Breast: Normal Back: Normal Back: Normal Back: Normal Abdomen: Normal Abdomen: Normal Abdomen: Normal Genitourinary Exam: Normal Genitourinary Exam: Normal Genitourinary Exam: Normal Extremities: Abnormal Extremities: Normal Extremities: Normal DTRs: Abnormal DTRs: Normal DTRs: Normal Pelvic Type: Not Done Pelvic Type: Adequate Pelvic Type: Adequate Physical Exam Comments: DTRs +2, +1 edema BLE Vital Signs: Reviewed Vital Signs: Reviewed VAGINAL EXAM Dilatation: 7 Dilatation: 2 Effacement: 100 Effacement: 50 Station: 0 Station: -3 Contraction Comments: 2-3 MEMBRANES Pooling: Negative Membranes: Ruptured Membranes: Intact FETUS A EGA: 39.3 EGA: 38.6 EGA: 38.5 Monitoring: External US FHR- Baseline: 130 Variability: Moderate 6-25bpm Accelerations: 15X15 Decelerations: None FHR Category: Category I Estimated Weight (gm): 3500 Presentation: Vertex Admit Comment: admit for PP PreE, Magnesium sulfate and monitor for severe range pressures. Will discharge when mag course complete Admit Comment: 24 hour urine protein returned over 300 mg. Will proceed with induction for PreE w/o severe features. counseled on increased risks including risks of ceserean delivery. voices understanding. PLANS FOR LABOR AND DELIVERY Labor and Delivery: None Pain Management: Epidural Feeding Preference: Breast Benefit of Breast Feed Discussed: Yes Circumcision: N/A INFORMED CONSENT Signature: with User ID: [email or web address] Signature: with User ID: [email or web address] : with User ID: [email or web address]
== END 2017-03-21 12:08 | disposition home or self-care (01) | DRG 776 ==
LOC: ER 21:25 → EH 03-21 02:29 → OBSVTOIN 03-21 02:29 → LR 03-21 03:02
PROVIDERS: ADMIT Obstetrics & Gynecology; ATTEND Obstetrics & Gynecology
DX: O14.95 Unspecified pre-eclampsia, complicating the puerperium (principal); H53.8 Other visual disturbances
CPT/HCPCS: 36415; 71046; 80053; 81001; 82550; 82553; 82570; 83615; 84156; 84550; 85025; 93005; 93010; 96374; 99285; J3475; J3490

== ENCOUNTER → 2019-12-22 | Outpatient (CLI) | payer OTHER ==
--- OUTSIDE RECORDS SUMMARY | 2019-12-23 18:28 | XMS REPORT ---
:1995 [facility] Address [address] [address] Care Team Providers Name Role Phone Unavailable Unavailable Unavailable Allergies, Adverse Reactions, Alerts This patient has no known allergies or adverse reactions. Medications This patient has no known medications. Problems This patient has no known problems. Procedures This patient has no known procedures. Results This patient has no known results. Social History This patient has no known social history. Vital Signs This patient has no known vital signs.
== END ==
LOC: RAD 10:23
PROVIDERS: ATTEND Otolaryngology
DX: J33.9 Nasal polyp, unspecified (principal); J32.9 Chronic sinusitis, unspecified
CPT/HCPCS: 70486

== ENCOUNTER 2020-02-23 06:38 | Day surgery (SDC) | payer OTHER ==
[~2020-02-23 06:38] MED LIST: CEFAZOLIN 2 GM/D5W RTU 2 GM/50 ML RTUPB IV PRN; LACTATED RINGERS 1000 ML IV PRN; LIDOCAINE 0.5% INJ-PF (5 MG/ML) 50 ML SDV SUBCUT PRN; SCOPOLAMINE HYDROBROMIDE 1.5 MG PATCH.TD72 TD PRN
[2020-02-23] MEDS ORDERED: BACITRACIN ZINC OINTMENT 15 GM ONE (07:07)
[2020-02-23] MEDS ORDERED: MINERAL OIL (STERILE) 10 ML VIAL ONE (07:07)
[2020-02-23] MEDS ORDERED: LIDOCAINE 1%/EPINEPHRINE INJ 20 ML VIAL ONE (07:07)
[2020-02-23] MEDS ORDERED: BUPIVACAINE HCL 0.5%/EPI 1:200000 INJ 1.8 ML CARTRIDGE ONE (07:07)
[2020-02-23] MEDS ORDERED: OXYMETAZOLINE HCL 0.05% NASAL SPRAY 15 ML BOTTLE ONE (07:08)
[2020-02-23] MEDS ORDERED: DEXAMETHASONE SOD PHOSPHATE INJ 4 MG/1 ML VIAL ONE (07:18)
[2020-02-23] MEDS ORDERED: MIDAZOLAM 2 MG/2 ML INJ ONE (07:18)
[2020-02-23] MEDS ORDERED: ONDANSETRON HCL INJ/PF 4 MG/2 ML SDV ONE (07:18)
[2020-02-23] MEDS ORDERED: FENTANYL CITRATE INJ/PF 100 MCG/2 ML AMPUL ONE (07:18)
[2020-02-23] MEDS ORDERED: PROPOFOL INJ 200 MG/20 ML VIAL IV ONE (07:19)
[2020-02-23] MEDS ORDERED: SUCCINYLCHOLINE CHLORIDE INJ 200 MG/10 ML VIAL ONE (07:19)
[2020-02-23] MEDS ORDERED: ROCURONIUM BROMIDE INJ 50 MG/5 ML VIAL IV ONE (07:19)
[2020-02-23] MEDS ORDERED: LEVALBUTEROL HCL NEB 0.63 MG/3 ML AMPUL NEB ONE (07:24)
[2020-02-23] MEDS ORDERED: BALANCED SALT IRRIG SOLN COMB2 15 ML BOTTLE ONE (08:03)
[2020-02-23] MEDS ORDERED: TOBRAMYCIN SULFATE/DEXAMETH OPH OINTMENT 3.5 GM ONE (08:03)
[2020-02-23] MEDS ORDERED: PROMETHAZINE HCL INJ 25 MG/1 ML VIAL ONE (12:23)
[2020-02-23] MEDS ORDERED: OXYCODONE-ACETAMINOPHEN 5-325 MG TABLET ONE (13:10)
[2020-02-23] MEDS ORDERED: ONDANSETRON 4 MG TAB.RAPDIS ONE (14:14)
--- NOTE | 2020-03-01 10:45 | Operative Report ---
Operative Report-[facility] Operative Report: DATE OF OPERATION: PREOPERATIVE DIAGNOSES: 1. Acute recurrent sinusitis/ARS 2. Nasal septal deviation, Acquired 3. Bilateral inferior turbinate hypertrophy 4. Nasal Deformities, Acquired 5. Chronic Nasal Dyspnea 6. Chronic rhinosinusitis/CRS 7. Bilateral sinonasal polyposis/polyp disease 8. Bilateral dale bullosa POSTOPERATIVE DIAGNOSES: 1. Acute recurrent sinusitis/ARS 2. Nasal septal deviation, Acquired 3. Bilateral inferior turbinate hypertrophy 4. Nasal Deformities, Acquired 5. Chronic Nasal Dyspnea 6. Chronic rhinosinusitis/CRS 7. Bilateral sinonasal polyposis/polyp disease 8. Bilateral dale bullosa PROCEDURES: 1. Functional endoscopic sinus surgery via bilateral transnasal rigid surgical endoscopy as follows: 2. Bilateral maxillary antrostomies with removal of tissue via bilateral transnasal rigid surgical endoscopy 3. Bilateral frontal sinus balloon sinuplasty via bilateral transnasal rigid surgical endoscopy 4. Bilateral sphenoid sinus balloon sinuplasty via bilateral transnasal rigid surgical endoscopy 5. Bilateral anterior ethmoidectomies with tissue removal via bilateral transnasal rigid surgical endoscopy 6. Septoplasty 7. Bilateral dale bullosa reductions via bilateral transnasal rigid surgical endoscopy 8. Bilateral intramural inferior turbinate reductions using submucus resection techniques SURGEON: Dr. Abebe King Anesthesia Staff: BUZZ Thornton ANESTHESIA: General endotracheal tube anesthesia/GETA DRAINS: None SPONGE COUNT: Verified NEEDLE COUNT: Verified SPECIMEN/MATERIALS FORWARD TO THE LAB: Bilateral sinonasal biopsy specimens ESTIMATED BLOOD LOSS: 125 mL TOTAL IV FLUIDS: 1500 mL COMPLICATIONS: None FINDINGS: 1. Bilateral extensive sinonasal polyps/polyp disease/polypoid changes 2. Severe bilateral dale bullosa with polyp changes 3. Severe left maxillary sinus cyst/polyps 4. Nasal septal deviation to the left involving bone and cartilage with a left maxillary crest spur/septal spur 4. Bilateral inferior turbinate hypertrophy INDICATIONS: This is a 24-year-old white female patient who was seen and evaluated in the [facility] office. The patient was referred for and they complained of a history of chronic nasal dyspnea and acute recurrent and chronic sinusitis/sinus disease and sinonasal polyp problems over the years. The patient has desired to undergo sinus and nasal surgery to improve functional nasal airflow and overall quality of life. The procedures consisting of functional endoscopic sinus surgery, septoplasty, bilateral inferior turbinate reductions, and bilateral dale bullosa reductions, and removal of sinonasal polyp tissue, and all of the risks and complications were all discussed in detail with the patient. She voiced an understanding, agreed to proceed, and consent was obtained. DESCRIPTION OF OPERATIVE PROCEDURE: The patient was taken to the main operating room and placed on the operating room table in the supine position. Appropriate monitors were placed. Using mask and IV access general anesthesia was induced. The patient was then transorally intubated without difficulty. The table was next positioned for nasal surgery. The patient underwent a nasal examination and local anesthetic with epinephrine was administered to establish a nasal block. The patient next had two Afrin soaked neuropatties placed into each nasal passage. The patient was then prepped and draped in the usual fashion for nasal surgery. The image guidance sinus surgery system was set up and tested appropr iately before beginning the case. The neuropatties were removed and the patient underwent a hemitransfixion incision. There was elevation of the mucoperichondrial and mucoperiosteal flaps without difficulty. The bony cartilaginous junction was identified and divided and the most deviated portions of the bony and cartilaginous septum were removed without difficulty. There was a greater than 1.5 X 1.5 cm cartilaginous L-Strut preserved. The left maxillary crest spur/septal spur was removed without difficulty using a V-gouge. Findings were as noted above. Attention was now turned to performing bilateral inferior turbinate reductions. The turbinate bipolar wand was used to make 2 - 3 intramural passes in each inferior turbinate. At this point the turbinate microdebrider system at a setting of 1500 RPM was used to perform bilateral inferior turbinate submucus resections. This was followed by use of the Karla elevator to outfracture each inferior turbinate. Excessive/redundant mucosa at the anterior portion of the inferior turbinates was next trimmed with margins reapproximated with chromic suture. At this point the image guidance/IG functional endoscopic sinus surgery/FESS portion of the surgery was addressed in the following manner. Bilateral transnasal rigid surgical endoscopy and a variety of sinus surgical instrumentation to include a microdebrider system at a setting of 3000 RPM was utilized throughout this portion of the case. Findings were as noted above. The bilateral dale bullosa were reduced in size to include removal of polypoid components with the microdebrider system and resection of the anterior head of each middle turbinate/dale bullosa. At this point the bilateral maxillary antrostomies were performed and the severe left maxillary sinus cyst/polyp was removed and passed off for permanent pathology evaluation. The bilateral anterior ethmoidectomies were performed without difficulty. At this point the frontal sinus balloon sinuplasty system was introduced and introduced on the left and right side and inflated to 12 michelle at multiple different positions. It was next withdrawn and the sphenoid sinus balloon system was introduced on the left and the right side and was inflated to 12 michelle at multiple different positions. There had been numerous biopsy specimens taken in the areas of the maxillary sinuses and ethmoid sinuses and sinonasal areas bilateral. There was extensive irrigation throughout the case with suctioning with reasonable hemostasis being noted. At this point there were Propel Contour stents placed to in the left frontal sinus recess distribution and one on the right followed by placement of 1 ethmoid Propel stent per side. At this point the nose was thoroughly suctioned. Once complete the septum was repositioned in the midline. Cartilage which had been excised during the case was placed back between the mucosal flaps. At this point the mucosal flaps were reapproximated and the hemitransfixion incision was closed using Chromic suture. This was followed by placement of intranasal supporting material assisting of 1 modified Merocel nasal pack with Afrin and bacitracin ointment in each nasal passage that was secured at the caudal aspect with 4-0 Prolene suture. The nose was then cleaned and dried. Next, the patient was returned to the anesthesia staff and was allowed to emerge from general anesthesia. The patient was extubated in the main operating room and was then transported to the postanesthesia recovery unit in stable condition. There were no complications.
== END 2020-02-23 14:35 | disposition home or self-care (01) ==
LOC: SC 06:38
PROVIDERS: ATTEND Otolaryngology
DX: J33.8 Other polyp of sinus (principal); J33.0 Polyp of nasal cavity; J32.9 Chronic sinusitis, unspecified; J34.2 Deviated nasal septum; J34.3 Hypertrophy of nasal turbinates; J34.89 Other specified disorders of nose and nasal sinuses; J34.1 Cyst and mucocele of nose and nasal sinus; R06.09 Other forms of dyspnea; J32.8 Other chronic sinusitis; Z01.812 Encounter for preprocedural laboratory examination; Z20.822 Contact with and (suspected) exposure to COVID-19; F17.210 Nicotine dependence, cigarettes, uncomplicated
CPT/HCPCS: 31267; 31298; 31254; 31240; 30520; 30140; 36415; 87635; 86003 ×24; 82785; 88305 ×2; 00160; C1726; C1778; C2625 ×2; C1769; J2250; J3490 ×7; J1100; S0119; J3010; J2550; J0330; J2405; J2704; J0690; C9803; 160